=== PATIENT | female | born 1980 | race Caucasian/White ===

== ENCOUNTER 2020-12-02 21:12 | Emergency (ER) | payer MEDICAID ==
[~2020-12-02] VITALS: Ht 157.5 cm; Wt 80.0 kg
[2020-12-02] MEDS ORDERED: ONDANSETRON 4MG ODT PO ONE (23:15)
[2020-12-02] MEDS ORDERED: ACETAMINOPHEN 325MG TABLET PO ONE (23:15)
[2020-12-02 23:28] LABS: BASOPHILS % 0.1 % (0.0-2.0); EOSINOPHILS % 0.4 % (0.0-5.0); HEMATOCRIT. 32.7 % (36.0-48.0); HEMOGLOBIN. 11.5 g/dL (12.0-16.0); LYMPHOCYTES % 18.1 % (20.0-50.0); MEAN CORPUSCULAR HEMOGLOBIN 32.8 pg (28.0-32.0); MEAN CORPUSCULAR VOLUME 93.6 fL (81.0-99.0); MEAN PLATELET VOLUME 7.1 fl (7.4-10.4); NEUTROPHILS % 75.4 % (40.0-76.0); PLATELET 319 x1000/uL (130-400); RED BLOOD CELL COUNT 3.49 mill/uL (4.2-5.4); RED CELL DISTRIBUTION WIDTH 13.6 % (11.6-14.6)
[2020-12-02 23:34] LABS: CLARITY URINE CLOUDY (CLEAR); COLOR URINE YELLOW (YELLOW); KETONES URINE NEGATIVE (NEGATIVE); LEUKOCYTE ESTERASE URINE 3+ (NEGATIVE); NITRITE URINE NEGATIVE (NEGATIVE); OCCULT BLOOD URINE NEGATIVE (NEGATIVE); PROTEIN URINE NEGATIVE (NEGATIVE); SPECIFIC GRAVITY URINE 1.022 (1.005-1.030)
[2020-12-02 23:42] LABS: CHLORIDE 104 mEq/L (98-107)
[2020-12-03] MEDS ORDERED: ONDA4TAB11 PO (01:45)
[2020-12-03] MEDS ORDERED: NITR100C MT (01:45)
[2020-12-03 01:48] VITALS: BP 129/67
== END 2020-12-03 01:53 | disposition home or self-care (01) ==
LOC: ER 21:12
DX: O99.612 Diseases of the digestive system complicating pregnancy, second trimester (principal); K80.80 Other cholelithiasis without obstruction; O26.892 Other specified pregnancy related conditions, second trimester; R82.90 Unspecified abnormal findings in urine; K76.0 Fatty (change of) liver, not elsewhere classified; O09.512 Supervision of elderly primigravida, second trimester; Z3A.17 17 weeks gestation of pregnancy
CPT/HCPCS: 36415; 76705; 76805; 80053; 81003; 83690; 85025; 87086; 93005; 99285; Q0162

== ENCOUNTER 2020-12-26 22:00 | Observation (INO) | payer MEDICAID ==
[~2020-12-26] VITALS: Ht 157.5 cm; Wt 81.2 kg
[~2020-12-26 22:00] MED LIST: NITR100C MT; ONDA4TAB11 PO
[2020-12-26] MEDS ORDERED: FERR325T6 MT (23:06)
[2020-12-26] MEDS ORDERED: PREN1COM12 MT (23:06)
== END 2020-12-27 03:50 | disposition home or self-care (01) ==
LOC: 8 EST LDRP 22:00
PROVIDERS: ADMIT Obstetrics & Gynecology; ATTEND Obstetrics & Gynecology
DX: O26.852 Spotting complicating pregnancy, second trimester (principal); O26.892 Other specified pregnancy related conditions, second trimester; R10.9 Unspecified abdominal pain; Z3A.21 21 weeks gestation of pregnancy
CPT/HCPCS: 76805; 76817; G0378; 99281

== ENCOUNTER 2021-04-28 13:38 | Observation (INO) | payer MEDICAID ==
[~2021-04-28] VITALS: Ht 157.5 cm; Wt 85.7 kg
[~2021-04-28 13:38] MED LIST changes: +FERR325T6 MT; +PREN1COM12 MT
== END 2021-04-28 16:30 | disposition home or self-care (01) ==
LOC: 8 EST LDRP 13:38
PROVIDERS: ADMIT Obstetrics & Gynecology; ATTEND Obstetrics & Gynecology
DX: O26.893 Other specified pregnancy related conditions, third trimester (principal); R10.31 Right lower quadrant pain; O62.9 Abnormality of forces of labor, unspecified; O09.523 Supervision of elderly multigravida, third trimester; Z3A.38 38 weeks gestation of pregnancy
CPT/HCPCS: 59025; 76805; 76818; G0378; 99281; G0379

== ENCOUNTER 2021-05-10 23:53 | Inpatient (IN) | payer MEDICAID ==
[~2021-05-10] VITALS: Ht 157.5 cm; Wt 85.7 kg
[~2021-05-10 23:53] MED LIST changes: -NITR100C MT; -ONDA4TAB11 PO
[2021-05-11] MEDS ORDERED: DEXT 5%/LR + PITOCIN 20UNITS/L 1,000 ML IV SCH ×2 (00:15→12:45)
[2021-05-11] MEDS ORDERED: DEXT 5%/LACTATED RINGERS 1,000 ML IV SCH (00:15)
[2021-05-11] MEDS ORDERED: NALOXONE HCL 0.4 MG/ML 1ML VIAL IM PRN (00:15)
[2021-05-11] MEDS ORDERED: BUTORPHANOL TARTRATE 2 MG/ML VIAL IV PRN (00:15)
[2021-05-11] MEDS ORDERED: RHO(D) IMMUNE GLOBULIN 300 MCG/SYR IM ONE (00:15)
[2021-05-11] MEDS ORDERED: LIDOCAINE HCL 1% 30ML VIAL (10MG/ML) INFIL SCH (00:45)
[2021-05-11] MEDS ORDERED: PENICILLIN G POTASSIUM 5 MMU in DEXT 5% WATER 100 ML IV SCH (01:00)
[2021-05-11 01:19] LABS: BASOPHILS % 0.5 % (0.0-2.0); EOSINOPHILS % 0.7 % (0.0-5.0); HEMOGLOBIN. 11.7 g/dL (12.0-16.0); LYMPHOCYTES % 23.9 % (20.0-50.0); MEAN CORPUSCULAR HEMOGLOBIN 31.9 pg (28.0-32.0); MEAN CORPUSCULAR VOLUME 92.5 fL (81.0-99.0); MEAN PLATELET VOLUME 8.5 fl (7.4-10.4); MONOCYTES % 6.1 % (2.0-8.0); NEUTROPHILS % 68.8 % (40.0-76.0); PLATELET 229 x1000/uL (130-400); RED BLOOD CELL COUNT 3.68 mill/uL (4.2-5.4); RED CELL DISTRIBUTION WIDTH 14.1 % (11.6-14.6)
[2021-05-11] MEDS: LACTATED RINGERS 1,000 ML IV SCH ×3 (01:33→08:56)
[2021-05-11 01:45] LABS: INR 0.9; PARTIAL THROMBOPLASTIN TIME 26.8 sec (23.4-31.0); PROTHROMBIN TIME 9.6 sec (9.6-11.0)
[2021-05-11 02:08] LABS: HEPATITIS B SURFACE ANTIGEN NEGATIVE
[2021-05-11] MEDS ORDERED: ROPIVACAINE HCL/PF EPIDURAL 200 ML EPI SCH (03:15)
[2021-05-11] MEDS ORDERED: FENTANYL CITRATE/PF 50MCG/ML 2ML VIAL ONE (03:32)
[2021-05-11] MEDS ORDERED: PENICILLIN G POTASSIUM 2.5 MMU in DEXTROSE 5% WATER 50 ML IV SCH (05:00)
[2021-05-11] MEDS ORDERED: LIDOCAINE HCL 2%/EPINEPHRINE 1:100,000 20 ML VIAL INFIL ONE (08:17)
[2021-05-11] MEDS ORDERED: BUPIVACAINE HCL/PF 0.25% (2.5MG/ML) 10ML ONE (08:52)
[2021-05-11 09:10] LABS: CLARITY URINE CLEAR (CLEAR); COLOR URINE YELLOW (YELLOW); KETONES URINE TRACE (NEGATIVE); LEUKOCYTE ESTERASE URINE NEGATIVE (NEGATIVE); NITRITE URINE NEGATIVE (NEGATIVE); OCCULT BLOOD URINE 1+ (NEGATIVE); PH URINE 5.5 (4.5-8.0); PROTEIN URINE NEGATIVE (NEGATIVE); SPECIFIC GRAVITY URINE 1.015 (1.005-1.030); UROBILINOGEN URINE 0.2 E.U./dL (0.2-1.0)
[2021-05-11 09:48] LABS: *AMPHETAMINES SCREEN URINE NEGATIVE (NEGATIVE); *BARBITURATES SCREEN URINE NEGATIVE (NEGATIVE); *BENZODIAZEPINES SCREEN URINE NEGATIVE (NEGATIVE); *COCAINE SCREEN URINE NEGATIVE (NEGATIVE); METHADONE URINE SCREEN NEGATIVE (NEGATIVE)
[2021-05-11 09:49] LABS: CANNABINOID URINE SCREEN NEGATIVE (NEGATIVE); OPIATES URINE SCREEN NEGATIVE (NEGATIVE); PHENCYCLIDINE URINE SCREEN NEGATIVE (NEGATIVE)
[2021-05-11] MEDS ORDERED: ACETAMINOPHEN WITH CODEINE 300/30MG TABLET PO PRN (12:45)
[2021-05-11] MEDS ORDERED: BENZOCAINE/LANOLIN/ALOE VERA SPRAY TOP PRN (12:45)
[2021-05-11] MEDS ORDERED: RHO(D) IMMUNE GLOBULIN 300 MCG/SYR IM PRN (12:45)
[2021-05-11] MEDS ORDERED: HEMORRHOIDAL SUPP PR PRN (12:45)
[2021-05-11] MEDS ORDERED: IBUPROFEN 400MG TABLET PO PRN (12:45)
[2021-05-11] MEDS ORDERED: METHYLERGONOVINE MALEATE 0.2 MG/ML IM PRN (12:45)
[2021-05-11] MEDS ORDERED: BISACODYL 10MG SUPP PR PRN (12:45)
[2021-05-11] MEDS ORDERED: GLYCERIN/WITCH HAZEL LEAF MEDICATED PAD TOP PRN (12:45)
[2021-05-11] MEDS ORDERED: DIPHENHYDRAMINE 25MG CAPSULE PO PRN (12:45)
[2021-05-11] MEDS ORDERED: LANOLIN OINT 7GM TUBE TOP PRN (12:45)
[2021-05-11 15:05] VITALS: BP 90/54
[2021-05-11 15:35] VITALS: BP 91/50
[2021-05-11] MEDS: SIMETHICONE 80MG TABLET CHEW PO SCH ×2 (17:03→20:48)
[2021-05-11] MEDS: MAGNESIUM/ALUMINUM HYDROXIDE/SIMETHICONE 30ML UDC PO SCH ×2 (17:03→20:49)
[2021-05-11 20:00] VITALS: BP 103/54
[2021-05-11] MEDS: DOCUSATE SODIUM 100MG CAPSULE PO SCH (20:49)
[2021-05-12 03:55] VITALS: BP 97/53
[2021-05-12] MEDS: IBUPROFEN 800MG TABLET PO PRN ×2 (04:17→13:06)
[2021-05-12] MEDS: SIMETHICONE 80MG TABLET CHEW PO SCH ×4 (07:30→20:49)
[2021-05-12] MEDS: MAGNESIUM/ALUMINUM HYDROXIDE/SIMETHICONE 30ML UDC PO SCH ×4 (07:30→20:49)
[2021-05-12 07:41] VITALS: BP 90/50
[2021-05-12 07:57] LABS: BASOPHILS % 0.1 % (0.0-2.0); EOSINOPHILS % 0.1 % (0.0-5.0); HEMATOCRIT. 30.4 % (36.0-48.0); HEMOGLOBIN. 10.5 g/dL (12.0-16.0); LYMPHOCYTES % 14.3 % (20.0-50.0); MEAN CORPUSCULAR HEMOGLOBIN 32.1 pg (28.0-32.0); MEAN CORPUSCULAR VOLUME 92.7 fL (81.0-99.0); MEAN PLATELET VOLUME 8.2 fl (7.4-10.4); MONOCYTES % 5.8 % (2.0-8.0); NEUTROPHILS % 79.7 % (40.0-76.0); PLATELET 221 x1000/uL (130-400); RED BLOOD CELL COUNT 3.28 mill/uL (4.2-5.4)
[2021-05-12] MEDS: FERROUS SULFATE 325MG TABLET PO SCH ×3 (08:53→18:17)
[2021-05-12] MEDS ORDERED: PRENATAL VIT/FE FUMARATE/FA TABLET PO SCH (09:00)
[2021-05-12 15:54] VITALS: BP 109/55
[2021-05-12 20:00] VITALS: BP 102/64
[2021-05-12] MEDS: DOCUSATE SODIUM 100MG CAPSULE PO SCH (20:49)
[2021-05-13 04:30] VITALS: BP 100/54
[2021-05-13] MEDS ORDERED: IBUP-2030 PO (05:52)
[2021-05-13 06:49] LABS: BASOPHILS % 0.1 % (0.0-2.0); EOSINOPHILS % 0.7 % (0.0-5.0); HEMATOCRIT. 30.4 % (36.0-48.0); HEMOGLOBIN. 10.6 g/dL (12.0-16.0); LYMPHOCYTES % 21.8 % (20.0-50.0); MEAN CORPUSCULAR HEMOGLOBIN 32.4 pg (28.0-32.0); MEAN CORPUSCULAR VOLUME 92.5 fL (81.0-99.0); MEAN PLATELET VOLUME 7.8 fl (7.4-10.4); NEUTROPHILS % 72.4 % (40.0-76.0); PLATELET 225 x1000/uL (130-400); RED BLOOD CELL COUNT 3.28 mill/uL (4.2-5.4); RED CELL DISTRIBUTION WIDTH 14.4 % (11.6-14.6)
[2021-05-13 08:00] VITALS: BP 114/48
== END 2021-05-13 11:35 | disposition home or self-care (01) | DRG 560 ==
LOC: OBSVTOIN 23:53 → 8EST 23:53 → 8 EST LDRP 23:56 → 8EST 05-11 14:53
PROVIDERS: ADMIT Specialist; ATTEND Specialist
PROC: 10E0XZZ Delivery of Products of Conception, External Approach (ICD-10-PCS; principal; 2021-05-11)
PROC: 3E0R3BZ Introduction of Anesthetic Agent into Spinal Canal, Percutaneous Approach (ICD-10-PCS; 2021-05-11)
PROC: 00HU33Z Insertion of Infusion Device into Spinal Canal, Percutaneous Approach (ICD-10-PCS; 2021-05-11)
PROC: 0W8NXZZ Division of Female Perineum, External Approach (ICD-10-PCS; 2021-05-11)
DX: O48.0 Post-term pregnancy (principal); Z37.0 Single live birth; O99.03 Anemia complicating the puerperium; O99.214 Obesity complicating childbirth; Z3A.40 40 weeks gestation of pregnancy; Z20.822 Contact with and (suspected) exposure to COVID-19
CPT/HCPCS: 36415; 76805; 76818; 80305; 81003; 85025; 86592; 86703; 86762; 86850; 86900; 87340; 87426; G0378; J2540; J2590; J2795; J3010; J3490; J7060; J7120; J7121; A4315